=== PATIENT | female | born 1970 | race Caucasian/White ===

== ENCOUNTER 2021-01-25 15:12 | Emergency (ER) | payer MEDICAID, SELFPAY ==
[2021-01-25 15:14] VITALS: BP 158/111; PULSE 109; RESP 19; TEMP 35.6; O2SAT 95; BMI 32.8
--- NOTE | 2021-01-25 15:22 | EKG12_ITS ---
Test Reason : STOMACH PAIN Blood Pressure : / mmHG Vent. Rate : 096 BPM Atrial Rate : 096 BPM P-R Int : 136 ms QRS Dur : 098 ms QT Int : 362 ms P-R-T Axes : 056 048 037 degrees QTc Int : 457 ms Normal sinus rhythm Normal ECG Confirmed by SONY AGUILAR, TRACIE ([id number]), legal editor GOPAL SHAHID ([id number]) on 01/26/2021 12:55:25 PM Referred By: JOSE RAUL Confirmed By:ASTON CARDOZA MD
[2021-01-25] MEDS: 0.9% Normal Saline 1,000 ML 150 ML IV (15:29)
[2021-01-25] MEDS: 0.9% Normal Saline 1,000 ML 1000 ML IV (15:31)
[2021-01-25] MEDS: DiphenhydrAMINE 50 MG/ML Syringe 25 MG IV (15:31)
--- NOTE | 2021-01-25 15:31 | NURSING ---
NO OLD EKGS
[2021-01-25] MEDS: Metoclopramide 10 MG/2 ML Vial IV (15:32)
[2021-01-25 15:33] VITALS: BP 158/111; PULSE 108; RESP 19; TEMP 35.6; O2SAT 96
--- NOTE | 2021-01-25 15:34 | EDS_ITS ---
HPI History of Present Illness Chief Complaint: Nausea/Vomiting Informant: patient and spouse/S.O. Onset/Context/Timing Onset: Month(s) Current Severity: Severe Maximum Severity: Severe Narrative Narrative: Patient presents to urgent care via EMS secondary to nausea and dry heaves. Patient had gastric bypass surgery in 2016 in [place]. For the last 2 to 3 months patient's had increasing belching, nausea, dry heaves. She complains of diffuse abdominal pain now. For the last 4 days she reports subjective fevers and chills with a cough. [facility] Medical History (Updated 01/25/21 @ 18:[address] Ruma Moya MD) Anxiety Depression History of IBS Home Medications clonazepam 01/25/21 [History Last Taken Unknown] duloxetine mg PO 01/25/21 [History Last Taken Unknown] furosemide 01/25/21 [History Last Taken Unknown] hydrochlorothiazide 01/25/21 [History Last Taken Unknown] lamotrigine 01/25/21 [History Last Taken Unknown] metoclopramide HCl [Reglan] 10 mg PO Q6H PRN #14 tab 01/25/21 [Rx Last Taken Unknown] omeprazole 01/25/21 [History Last Taken Unknown] quetiapine 01/25/21 [History Last Taken Unknown] Allergy/AdvReac Type Severity Reaction Status Date / Time celecoxib [From Celebrex] Allergy Swelling Verified 01/25/21 15:14 morphine AdvReac Other Verified 01/25/21 15:14 Surgical History (Updated 01/25/21 @ 15:[address] Ruma Moya MD) H/O gastric bypass History of colon resection Social History Smoking Status: Current every day smoker tobacco type: cigarettes ROS ROS ED Constitutional Constitutional ED: Reports chills, fever(s), subjective and sweats Eyes Eyes: Denies change in vision ENT ENT ED: Denies sore throat Cardiovascular Cardiovascular: Denies chest pain Respiratory/Chest Respiratory/Chest: Reports cough; Denies dyspnea Gastrointestinal Gastrointestinal: Reports abdominal pain and nausea; Denies diarrhea or vomiting Genitourinary Genitourinary ED: Denies dysuria Musculoskeletal Musculoskeletal: Denies back pain Integumentary Denies rash Neurologic Neurologic: Denies headache(s) or weakness Psychiatric Psychiatric: Denies anxiety or depression Endocrine Endocrinology: Denies polydipsia or polyuria Allergic/Immunologic Allergic/Immunologic ED: Denies urticaria EXAM Physical Exam Const Vital Signs: 01/25/21 15:14 01/25/21 15:33 01/25/21 17:00 Temperature 96.1 F L 96.1 F L 96.9 F L Temperature Source Temporal Temporal Temporal Pulse Rate 109 H 108 H 101 H Respiratory Rate 19 H 19 H 18 Blood Pressure 158/111 H 158/111 H 146/84 H Blood Pressure Mean 126 126 104 Pulse Ox 95 96 96 Oxygen Delivery Method Room Air Room Air Room Air Positive well nourished and well developed General Appearance ED: well developed HEENT Reports normocephalic and head/scalp atraumatic Eyes PERRL and EOMs intact bilaterally Neck supple Chest Wall inspection of chest normal and palpation of chest normal Resp clear to auscultation bilaterally Resp Narrative: Tachypneic Cardio regular rhythm Rate: tachycardic GI GI Narrative: Mild diffuse tenderness to palpation. No guarding or rebound. Auscultation: hypoactive bowel sounds Palpation: soft and tender Extremity normal to inspection Neuro oriented x3 and no sensory deficits noted Sensorium / Orientation: alert Motor Exam: strength 5/5 throughout Psych mental status grossly normal Skin no rashes or lesions noted MDM MDM MDM Narrative Medical decision making narrative: Patient was given Reglan and Benadryl for nausea. Lab work was obtained. Urinalysis was obtained. Lab Data Attestation: I reviewed the patient's lab results. Labs: Laboratory Results - last 24 hr 01/25/21 01/25/21 01/25/21 15:24 15:24 17:49 WBC 6.8 RBC 4.44 Hgb 14.8 Hct 44.8 MCV 100.9 H MCH 33.3 H MCHC 33.0 RDW Std Deviation 48.7 H RDW Coeff of Russell 13.1 Plt Count 220 MPV 9.2 Immature Gran % (Auto) 0.400 Neut % (Auto) 76.4 H Lymph % (Auto) 16.5 L Garrett % (Auto) 5.7 Eos % (Auto) 0.7 Baso % (Auto) 0.3 Absolute Neuts (auto) 5.2 Absolute Lymphs (auto) 1.13 Nucleated RBC % 0 Sodium 137 Potassium 4.0 Chloride 104 Carbon Dioxide 24.0 Anion Gap 9 BUN 9 Creatinine 0.63 Estim Creat Clear Calc 107.77 Est GFR (MDRD) Af Amer 128 Est GFR (MDRD) Non-Af 106 BUN/Creatinine Ratio 14.2 Glucose 108 H Calcium 8.9 Total Bilirubin 0.30 Direct Bilirubin 0.09 AST 19 ALT 18 Alkaline Phosphatase 183 H Total Protein 8.1 Albumin 4.1 Globulin 4.0 Lipase 186 Urine Color Straw Urine Clarity Clear Urine pH 6.0 Ur Specific Delphi 1.010 Urine Protein Negative Urine Glucose (UA) Normal Urine Ketones Negative Urine Occult Blood Negative Urine Nitrite Negative Urine Bilirubin Negative Urine Urobilinogen Normal Ur Leukocyte Esterase Negative Urine RBC 0 SEEN Urine WBC 0-5 SEEN Ur Squamous Epith Cells 0-5 SEEN Urine Bacteria 0 SEEN Urine Mucus 0 SEEN Radiography Diagnostic Testing: Radiology Impression Chest X-Ray 01/25/21 16:25 IMPRESSION: Normal x-ray examination of the chest. Electronically Signed: Virginia Owens MD at 16:37 EDT , Service support , EKG Initial EKG: Attestation: I personally reviewed and interpreted this EKG as follows: Interpretation: Sinus Rhythm (Sinus at 96 with no acute ischemia.) Treatment and Re-Evaluation Comments:: Patient did have significant improvement in her symptoms with Reglan and Benadryl. Covid test is negative. Chest x-ray unremarkable per my interpretation. Lab work is unremarkable and urinalysis shows no sign of infection. Patient be given a prescription for Reglan. She is advised to follow-up with her surgeon for repeat evaluation. Discharge Plan Triage Chief Complaint: Nausea/Vomiting ED Provider: Ruma Moya Dx/Rx/DC Orders Clinical Impression: Vomiting Instructions: ED Vomiting (Adult) Prescriptions: New metoclopramide HCl [Reglan] 10 mg tablet 10 mg PO Q6H PRN (Reason: nausea and vomiting) Qty: 14 RF: 0 No Action lamotrigine 200 mg tablet RF: 0 clonazepam 0.5 mg tablet RF: 0 omeprazole 40 mg capsule,delayed release(DR/EC) RF: 0 hydrochlorothiazide 12.5 mg capsule RF: 0 furosemide 20 mg tablet RF: 0 duloxetine 60 mg capsule,delayed release(DR/EC) PO RF: 0 quetiapine 400 mg tablet RF: 0 Primary Care Provider: Natalio Camacho Referrals: Natalio Camacho MD [Primary Care Provider] - Activity Restrictions/Additional Instructions: Follow-up with your surgeon as discussed. Disposition Disposition: Home, self care
[2021-01-25 15:41] LABS: Absolute Lymphocyte Count 1.13 X10^3/uL (0.83-4.51); Absolute Neutrophil Count 5.2 X10^3/uL (2.0-7.7); Basophil# 0.02 X10^3/uL; Basophil% 0.3 % (0-1); Eosinophil# 0.05 X10^3/uL; Eosinophils% 0.7 % (0-5); Hematocrit 44.8 % (37-47); Hemoglobin 14.8 g/dL (12.0-15.0); Lymphocyte # 1.13 X10^3/ul (0.83-4.51); Lymphocyte % 16.5 % (19-41); Mean Corpuscular Hgb 33.3 pg (27.0-32.0); Mean Corpuscular Volume 100.9 fL (81-99); Mean Platelet Vol. 9.2 fl (6.2-12.0); Monocyte# 0.39 X10^3/uL; Monocyte% 5.7 % (0-10); NRBC Flagged by Analyzer 0 % (0-5); Neutrophil # 5.21 X10^3/uL (2.7-7.7); Neutrophil % 76.4 % (47-70); Platelet Count 220 K/mm3 (150-450); RBC Distribution Width CV 13.1 % (11.6-14.6); RBC Distribution Width SD 48.7 fl (35.1-43.9); Red Blood Count 4.44 M/mm3 (4.2-5.4); White Blood Count 6.8 K/mm3 (4.4-11.0)
[2021-01-25 15:56] LABS: AST(SGOT) 19 U/L (15-37); Alanine Aminotransfer ALT/SGPT 18 U/L (13-56); Albumin, Serum 4.1 g/dL (3.2-5.0); Alkaline Phosphatase 183 U/L (45-117); Anion Gap 9 (5-15); BUN 9 mg/dL (7-18); BUN/Creat Ratio 14.2 RATIO (10-20); Bilirubin, Direct 0.09 mg/dL (0.00-0.30); Calcium,Total 8.9 mg/dL (8.5-10.1); Chloride 104 mmol/L (98-107); Creatinine, Serum 0.63 mg/dL (0.55-1.02); EST Glomerular Filtration Rate 106 mL/min (>60); Est Glom Filt Rate - Afr Amer 128 mL/min (>60); Estimated Creatinine Clearance 107.77 ml/min; Glucose 108 mg/dL (74-106); Lipase 186 U/L (73-393); Protein, Total 8.1 g/dL (6.4-8.2); Sodium Level 137 mmol/L (136-145)
--- NOTE | 2021-01-25 16:25 | RAD_ITS ---
STUDY: X-RAY CHEST REASON FOR EXAM: Female, 51 years old. cough TECHNIQUE: 1 view COMPARISON: None. FINDINGS: The lungs are clear and expanded. There is no demonstrated pleural abnormality. Normal size heart. Normal mediastinum and chavo. Normal visualized pulmonary arteries. Normal visualized aortic arch and descending thoracic aorta. Normal visualized thoracic spine. Normal visualized ribs, clavicles, and shoulders. There is no demonstrated abnormality of the visualized soft tissue structures of the upper abdomen. RAD/Chest 1 View (Portable) IMPRESSION: Normal x-ray examination of the chest. Electronically Signed: Virginia Owens MD at 16:37 EDT , Service support ,
[2021-01-25 17:00] VITALS: BP 146/84; PULSE 101; RESP 18; TEMP 36.1; O2SAT 96
[2021-01-25 17:58] LABS: Bacteria 0 SEEN /hpf (None Seen); Mucous, Urine 0 SEEN /hpf (<or=2+); Red Blood Cells-Urine 0 SEEN /hpf (0-5)
[2021-01-25 18:08] LABS: Color, Urine Straw (Yellow); Glucose, Dipstick Normal (Normal); Ketone-Dipstick Negative (Negative); Leukocyte Esterase-Dipstick Negative /ul (Negative); Nitrite-Dipstick Negative (Negative); Occult Blood-Urine Negative /ul (Negative); Protein-Dipstick Negative (Negative); Urine Bilirubin Dipstick Negative (Negative); Urine Clarity Clear (Clear); Urine Urobilinogen Normal (Normal)
[2021-01-25 18:36] LABS: Squamous Epithelial Cells - UA 0-5 SEEN /hpf (5-10)
[2021-01-25 18:37] LABS: White Blood Cells 0-5 SEEN /hpf (0-5)
[2021-01-25 19:03] VITALS: PULSE 88; RESP 18; O2SAT 96
== END 2021-01-25 19:03 | disposition home or self-care (01) ==
PROVIDERS: Emergency Provider Emergency Medicine; PCP Family Medicine
DX: R11.2 Nausea with vomiting, unspecified (principal); F17.210 Nicotine dependence, cigarettes, uncomplicated
CPT/HCPCS: 71045; 80048; 80076; 81001; 83690; 85025; 87426; 93005; 96361; 96374; 96375; 99285; J7030; A4216